=== PATIENT | male | born 1945 | race Caucasian/White ===

== ENCOUNTER 2018-04-26 11:11 | Emergency (ER) | payer MEDICAID ==
[~2018-04-26] VITALS: Ht 170.2 cm; Wt 77.1 kg
--- NOTE | 2018-04-26 11:43 | NUR ---
PT IS IN ROOM #1B. DR RAY EVALUATED THE PT.
--- NOTE | 2018-04-26 13:04 | NUR ---
PT WAS D/C'd TO HOME. D/C INSTRUCTIONS GIVEN TO THE PT BY DR RAY.
[2018-04-26 13:05] VITALS: BP 132/79
== END 2018-04-26 13:06 | disposition home or self-care (01) ==
LOC: ER 11:11
DX: J11.1 Influenza due to unidentified influenza virus with other respiratory manifestations (principal); H57.89 Other specified disorders of eye and adnexa
CPT/HCPCS: 71046; A4663

== ENCOUNTER 2020-04-30 01:59 | Emergency (ER) | payer OTHER ==
[~2020-04-30] VITALS: Ht 172.7 cm; Wt 79.0 kg
--- NOTE | 2020-04-30 02:26 | NUR ---
psychiatric technician in room with patient to take x-ray. Addendum: 04/30/20 at [address] of abdomen
--- NOTE | 2020-04-30 02:44 | NUR ---
Called [facility] , spoke to Allison who will call back withb transfer info.
[2020-04-30] MEDS ORDERED: ASPIRIN 81 MG TAB.CHEW PO ONE (03:00)
--- NOTE | 2020-04-30 03:00 | NUR ---
taylor from [facility] called [facility] and said the rvda master certified rv technician/car dumper will call back for doctor to doctor.
[2020-04-30 03:01] LABS: BASOPHILS # (AUTO) 0.1 K/uL (0.0-8.0); BASOPHILS % (AUTO) 1.2 % (0.0-2.0); EOSINOPHILS # (AUTO) 0.1 K/uL (0.0-0.7); EOSINOPHILS % (AUTO) 0.9 % (0.0-7.0); HEMATOCRIT 42.9 % (36.7-47.1); HEMOGLOBIN 14.4 g/dL (12.5-16.3); LYMPHOCYTES # (AUTO) 0.1 K/uL (20.0-40.0); MEAN CORPUSCULAR HEMOGLOBIN 30.3 uug (23.8-33.4); MEAN CORPUSCULAR HGB CONC 34 g/dL (32.5-36.3); MEAN CORPUSCULAR VOLUME 90.5 fL (73.0-96.2); MONOCYTES # (AUTO) 0.1 K/uL (2.0-10.0); MONOCYTES % (AUTO) 1.2 % (0.0-11.0); NEUTROPHILS # (AUTO) 6.9 K/uL (1.8-8.9); NEUTROPHILS % (AUTO) 94.7 % (38.5-71.5); PLATELET COUNT (AUTO) 143 K/uL (152-348); RED BLOOD CELL COUNT(AUTO) 4.74 MIL/uL (4.06-5.63); WHITE BLOOD COUNT (AUTO) 7.3 K/uL (3.6-10.2)
--- NOTE | 2020-04-30 03:03 | NUR ---
Spoke to [facility] transfer center from [facility]. Will fax facesheet and EK to .
[2020-04-30 03:04] LABS: CARBON DIOXIDE 28 mmol/L (21-32); CHLORIDE 98 mmol/L (98-107); CREATININE 1.4 mg/dL (0.6-1.3); GLUCOSE 260 mg/dL (74-106); POTASSIUM 3.6 mmol/L (3.5-5.1); UREA NITROGEN, BLOOD 31 mg/dL (7-18)
[2020-04-30] MEDS ORDERED: ASPIRIN 81 MG TAB.CHEW ONE (03:07)
[2020-04-30 03:09] LABS: ALANINE AMINOTRANSFERASE 376 U/L (16-63); ALKALINE PHOSPHATASE 101 U/L (50-136); ASPARTATE AMINOTRANSFERASE 473 U/L (15-37); BILIRUBIN,DIRECT 1.1 mg/dL (0.0-0.2); BILIRUBIN,TOTAL 1.8 mg/dL (0.2-1.0); TOTAL PROTEIN, SERUM 7.3 g/dL (6.4-8.2)
--- NOTE | 2020-04-30 03:10 | NUR ---
called [facility] and called to [facility], per Allison, she is still waiting for cardiology to call back.
--- NOTE | 2020-04-30 03:15 | NUR ---
Called [facility]. Dr Hernandez spoke to Dr Kim who requested EKG to be faxed to .
[2020-04-30] MEDS ORDERED: PIPERACILLIN/TAZOBACTAM/D5W 50 ML IV ONE (03:23)
--- NOTE | 2020-04-30 03:26 | NUR ---
Called Allison from [facility] who states she is unable contact case management manager environmental services coordinator. She states she will contact [facility] case management manager.
[2020-04-30] MEDS ORDERED: IV NORMAL SALINE 1000 ML BAG IV ONE (03:30)
[2020-04-30] MEDS ORDERED: PIPERACILLIN SODIUM/TAZOBACTAM 3.375 G in IV DEXTROSE 5% 50 ML IV ONE (03:30)
--- NOTE | 2020-04-30 03:30 | NUR ---
Dr Hernandez speaking to [facility] who will accept patient.
--- NOTE | 2020-04-30 03:30 | NUR ---
[address] called for ALS transfer request to [facility].
--- NOTE | 2020-04-30 03:32 | NUR ---
DR. WASHINGTON FROM [facility] CALLED, AND ACCEPTED THE PT.
[2020-04-30] MEDS ORDERED: HEPARIN SODIUM,PORCINE 5,000 UNITS/ML VIAL ONE (03:38)
[2020-04-30] MEDS ORDERED: HEPARIN SODIUM,PORCINE 5,000 UNITS/ML VIAL IV ONE (03:45)
--- NOTE | 2020-04-30 03:46 | NUR ---
Patient Tranfers to outside Facility with ALS crew squad [id number]. Physician: MD WASHINGTON Location: [facility].
== END 2020-04-30 03:46 | disposition short-term general hospital (02) ==
LOC: ER 02:07
DX: I21.3 ST elevation (STEMI) myocardial infarction of unspecified site (principal); A41.9 Sepsis, unspecified organism; R74.01 Elevation of levels of liver transaminase levels; R10.13 Epigastric pain
CPT/HCPCS: 36415; 70030-TC; 71045; 83605; 85025; 85730; 87040; 87077; 93005; A4663; J1644; J2543; J7030